=== PATIENT | male | born 1995 | race Hispanic/Latino ===

== ENCOUNTER 2018-05-05 14:50 | Emergency (ER) | payer OTHER ==
[~2018-05-05] VITALS: Ht 177.8 cm; Wt 72.9 kg
[2018-05-05 14:50] VITALS: BP 128/63
[2018-05-05] MEDS ORDERED: IBUP-1022 PO (14:57)
[2018-05-05] MEDS ORDERED: METH10CA5 PO (14:57)
[2018-05-05] MEDS ORDERED: SERT25TA PO (14:57)
[2018-05-05] MEDS ORDERED: IBUPROFEN 600 MG TAB PO ONE (15:45)
--- NOTE | 2018-05-05 15:48 | REP ---
Left shoulder three views: There is a nondisplaced fracture of the clavicle. There is no dislocation. Mineralization is normal. There are no calcifications or foreign bodies. Impression: Clavicle fracture, otherwise negative left shoulder. Electronically Signed by Jose Antonio Freire MD 05/05/2018 03:39 P
== END 2018-05-05 16:01 | disposition home or self-care (01) ==
LOC: M ED 14:50
DX: S42.002A Fracture of unspecified part of left clavicle, initial encounter for closed fracture (principal); S00.83XA Contusion of other part of head, initial encounter; V00.311A Fall from snowboard, initial encounter; Y92.89 Other specified places as the place of occurrence of the external cause; Y93.23 Activity, snow (alpine) (downhill) skiing, snowboarding, sledding, tobogganing and snow tubing; Z79.899 Other long term (current) drug therapy

== ENCOUNTER 2018-05-13 13:10 | Emergency (ER) | payer OTHER ==
[~2018-05-13] VITALS: Ht 177.8 cm; Wt 79.5 kg
[~2018-05-13 13:10] MED LIST: IBUP-1022 PO; METH10CA5 PO; SERT25TA PO
[2018-05-13] MEDS ORDERED: HYDR-3713 PO (13:28)
--- NOTE | 2018-05-13 13:57 | REP ---
LEFT CLAVICLE, TWO VIEWS: HISTORY: Fracture. COMPARISON: Shoulder 05/05/2018. There is a fracture of the junction of the middle and distal thirds of the left clavicle. There is no dislocation. The joint spaces are normal in appearance. IMPRESSION: Fracture of the left clavicle unchanged compared to the previous study. Electronically Signed by Torsten Garcia MD 05/13/2018 02:03 P
[2018-05-13] MEDS ORDERED: KETOROLAC 60 MG/2 ML VIAL (J1885) IM ONE (14:30)
[2018-05-13 14:55] VITALS: BP 116/56
[2018-05-13] MEDS ORDERED: IBUP80TA PO (15:22)
== END 2018-05-13 15:39 | disposition home or self-care (01) ==
LOC: M ED 13:10
DX: S42.002A Fracture of unspecified part of left clavicle, initial encounter for closed fracture (principal); W01.0XXA Fall on same level from slipping, tripping and stumbling without subsequent striking against object, initial encounter; Y92.196 Pool of other specified residential institution as the place of occurrence of the external cause
CPT/HCPCS: 73000; 96372; 99284; J1885